=== PATIENT | male | born 1950 | race Caucasian/White ===

== ENCOUNTER → 2020-08-15 | Outpatient (CLI) | payer MEDICARE ==
[2020-08-15 13:43] LABS: African American GFR (CKD) >90 (>60 ml/min/1.73 sqM); Blood Urea Nitrogen 31 mg/dL (9-20); Non-African American GFR(CKD) 79 (>60 ml/min/1.73 sqM)
--- NOTE | 2020-08-15 15:19 | CT ---
EXAMINATION TYPE: CT angio chest DATE OF EXAM: 08/15/2020 2:32 PM COMPARISON: None. HISTORY: Thoracic aortic aneurysm. CT DLP: 612.4 mGycm Automated exposure control for dose reduction was used. CONTRAST: CTA scan of the thorax is performed without and with IV Contrast, patient injected with 100 mL of Iso hermila 300, aneurysm protocol. 3D reconstructed images are created on an independent workstation and re viewed.. FINDINGS: LUNGS: Dependent atelectasis. No suspicious focal consolidation or groundglass opacity. No concerning pulmonary nodules or masses. No pleural effusion or pneumothorax seen bilaterally. MEDIASTINUM: Moderate to severe calcification at level of aortic valve is present. There is ascending aortic aneurysm are 3.9 cm at the coronal image 33 of those may be exaggerated by pulsation artifact . There is 3.9 cm aneurysm of the ascending aorta image 32. No extension into the arch or descending aorta. Mild to moderate calcified plaque in the arch and descending aorta. Normal 3 vessel origin fro m the aortic arch without significant stenosis. There are no greater than 1 cm hilar or mediastinal l ymph nodes. Tiny pericardial effusion is seen anterior inferior aspect. Heart size mildly enlarged. M oderate calcified plaque in the RCA and LAD distribution. OTHER: Small degree of bilateral subareolar gynecomastia. Slight underlying scoliotic curvature. IMPRESSION: Slight aneurysmal change of the ascending aorta up to 3.9 cm in diameter
== END | disposition home or self-care (01) ==
LOC: RADCTMAIN 13:00
PROVIDERS: ATTEND Internal Medicine Interventional Cardiology
DX: I71.2 Thoracic aortic aneurysm, without rupture (principal)
CPT/HCPCS: 82565; 84520; 71275; 36415; Q9967

== ENCOUNTER 2023-07-31 05:43 | Day surgery (SDC) | payer MEDICARE ==
[2023-07-31] MEDS ORDERED: ALPRAZolam 0.25 MG TAB PO PRN (05:51)
[2023-07-31] MEDS ORDERED: HEPARIN SODIUM,PORCINE 10,000 UNIT in SODIUM CHLORIDE 0.9% 1,000 ML IRRIGATION PRN (05:51)
[2023-07-31] MEDS ORDERED: HEPARIN SODIUM,PORCINE (1 ML) 2,500 UNIT in SODIUM CHLORIDE 0.9% 250 ML IRRIGATION PRN (05:51)
[2023-07-31] MEDS ORDERED: ALPRAZolam 0.5 MG TAB PO PRN (05:51)
[2023-07-31] MEDS ORDERED: SODIUM CHLORIDE 0.9% 1,000 ML in EMPTY BAG 1 BAG IV SCH (05:51)
[2023-07-31] MEDS ORDERED: NITROGLYCERIN SL TABS 0.4 MG TAB SUBLINGUAL PRN (05:51)
[2023-07-31] MEDS ORDERED: SODIUM CHLORIDE 0.9% 1,000 ML IV ONE (06:17)
[2023-07-31 06:46] LABS: Basophils # (A) 0.1 k/uL (0-0.2); Basophils % (A) 1 %; Eosinophils # (A) 0.3 k/uL (0-0.7); Eosinophils % (A) 3 %; HCT 41.5 % (39.0-53.0); HGB 14.2 gm/dL (13.0-17.5); Lymphocytes # (A) 1.9 k/uL (1.0-4.8); Lymphocytes % (A) 19 %; MCH 31.2 pg (25.0-35.0); MCHC 34.3 g/dL (31.0-37.0); MCV 91.1 fL (80.0-100.0); Mean Platelet Volume 7.6; Monocytes # (A) 0.7 k/uL (0-1.0); Monocytes % (A) 7 %; Neutrophils # (A) 7.2 k/uL (1.3-7.7); Neutrophils % (A) 69 %; Platelet Count 227 k/uL (150-450); RBC 4.55 m/uL (4.30-5.90); RDW 12.4 % (11.5-15.5); WBC 10.4 k/uL (3.8-10.6)
[2023-07-31 06:46] LABS: Glucose,Whole Blood 100 mg/dL (70-110)
[2023-07-31 06:55] VITALS: RESP 16; TEMP 98.1
[2023-07-31 06:58] LABS: African American GFR (CKD) >90 (>60 ml/min/1.73 sqM); Anion Gap 11 mmol/L; Blood Urea Nitrogen 40 mg/dL (9-20); Carbon Dioxide 21 mmol/L (22-30); Chloride 105 mmol/L (98-107); Glucose 92 mg/dL (74-99); Non-African American GFR(CKD) 83 (>60 ml/min/1.73 sqM); Potassium 4.2 mmol/L (3.5-5.1); Sodium 137 mmol/L (137-145)
[2023-07-31] MEDS ORDERED: ASPIRIN 325 MG TAB PO ONE (07:00)
[2023-07-31] MEDS ORDERED: VERAPAMIL 2.5 MG/ML 2 ML AMP ONE (07:14)
[2023-07-31] MEDS ORDERED: LIDOCAINE 1% INJ 10MG/ML (20 ML MDV) ONE (07:14)
[2023-07-31] MEDS ORDERED: HEPARIN SODIUM 1,000 UN/ML (10ML VL) ONE (07:29)
[2023-07-31] MEDS ORDERED: fentaNYL (PF) 50 MCG/ML 2 ML AMP ONE (07:29)
[2023-07-31] MEDS ORDERED: fentaNYL (PF) 50 MCG/ML 2 ML AMP IVP ONE (07:34)
[2023-07-31] MEDS: LIDOCAINE 1% INJ 10MG/ML (20 ML MDV) SQ ONE ×2 (07:37→07:48)
[2023-07-31] MEDS: VERAPAMIL SYRINGE (5 MG/10 ML) INTRAARTER ONE ×2 (07:38→07:51)
[2023-07-31] MEDS ORDERED: HEPARIN SODIUM 1,000 UN/ML (10ML VL) IV ONE (07:56)
[2023-07-31] MEDS ORDERED: IOPAMIDOL-370 100ML BTL INJ ONE (08:14)
[2023-07-31] MEDS ORDERED: RX INFO: IV CONTRAST WAS GIVEN 1 EACH MISC MISCELLANE PRN (08:22)
[2023-07-31] MEDS ORDERED: SODIUM CHLORIDE 0.9% 1,000 ML IV SCH (08:30)
--- NOTE | 2023-07-31 08:30 | P.CARDCATH ---
Date of Procedure: 07/31/23 Description of Procedure: Cardiac Catheterization: The patient is a 73-year-old male with a history of hypertension, hyperlipidemia, diabetes mellitus and a prior history of CAD with stenting of the LAD in 2013 who has been complaining of symptoms of fatigue and dyspnea and had an abnormal MPI. Recommendations were made regarding cardiac catheterization, the risks and the complications were discussed with the patient who is in full understanding and agreement. Procedure Description: Patient was brought to lab support service tech in fasting semi-sedated state after receiving Fentanyl and Benadryl achieiving moderate conscious sedated state. Using Xylocaine Anesthesia and modified Seldinger technique, a 6-[place] sheath was introduced in the right radial artery, after introducing the sheath there was difficulty in removing the wire and at that time the wire and the sheath were removed and hemostasis was obtained with deployment of a TR band and subsequently using Xylocaine anesthesia in the modified Seldinger technique a 6- [place] sheath was introduced and the left radial artery . Subsequently, selective coronary angiography was performed using a 5-[place] 4 bend Teagan catheter. Multiple views of the coronary artery including hemiaxial views were obtained. The 5-[place] pigtail catheter was used to perform an [place] view of the ascending aorta. Following that, catheter and sheath were removed. Hemostasis was obtained with deployment of vascular band . There was no immediate complication. Patient was returned to room in stable condition. Of note, the patient received a total of 4500 units of intravenous heparin as well as intra-arterial verapamil. Findings: Fluoroscopy: Significant calcification of the aortic valve and mild to moderate calcification of the coronary arteries was noted Left main: This is a large size vessel, bifurcating into LAD and left circumflex, left main has no obstructive disease LAD: This is a large size vessel reaching to the apex giving rise to a large diagonal branch in the mid segment. The proximal LAD has 20-30%, the mid LAD at the site of the stent has a 20-30% plaque, the rest of the vessel has no high- grade stenosis Left circumflex: This is a nondominant vessel, giving rise to a moderately sized obtuse margin branch that has a 20-30% plaque with no high-grade stenosis RCA: This is a large dominant vessel, tortuous and calcified. The proximal RCA has 20-30% plaque. The takeoff of the PDA has a tubular lesion of 50-60%, the rest of the vessel has no high-grade stenosis Left Ventriculogram: Not performed. Aortogram was performed in the [place] view revealed 2+ aortic regurgitation with calcified aortic valve Conclusion: 1. Calcified aortic valve 2. Moderate disease at the takeoff of the right PDA 3. Mild disease in the stented mid LAD 4. Mild disease in the left circumflex Recommendations: In view of the findings and the anatomy I have recommended to continue medical therapy and depending on his progress further recommendations will be made. The findings and the recommendations were discussed with the patient and the family and they were in full understanding and agreement. Duration of sedation is 33 minutes.
[2023-07-31] MEDS ORDERED: NON FORMULARY DRUG (Ramipril [Ramipril] 10 MG Capsule) PO SCH (09:00)
[2023-07-31] MEDS ORDERED: glipiZIDE 5 MG TAB PO SCH (09:00)
[2023-07-31 12:53] VITALS: BP 149/71; PULSE 60
[2023-07-31] MEDS ORDERED: NON FORMULARY DRUG (Simvastatin [Simvastatin] 40 MG Tablet) PO SCH (21:00)
[2023-08-01] MEDS ORDERED: ASPIRIN 81 MG PO SCH (09:00)
== END 2023-07-31 12:25 | disposition home or self-care (01) ==
LOC: CATHCVL 05:43
PROVIDERS: ATTEND Internal Medicine Interventional Cardiology
DX: I25.10 Atherosclerotic heart disease of native coronary artery without angina pectoris (principal); I10 Essential (primary) hypertension; E11.9 Type 2 diabetes mellitus without complications; E78.5 Hyperlipidemia, unspecified; Z95.5 Presence of coronary angioplasty implant and graft; Z79.01 Long term (current) use of anticoagulants; Z79.899 Other long term (current) drug therapy; Z79.84 Long term (current) use of oral hypoglycemic drugs
CPT/HCPCS: 99152; 99153; 93454; 93567; 80048; 85025; C1769 ×2; C1894; J2001; J3010; J1644; Q9967